=== PATIENT | male | born 1990 | race Caucasian/White ===

== ENCOUNTER → 2017-01-14 | Outpatient (CLI) | payer BC ==
--- NOTE | 2017-01-14 19:14 | DIAGNOSTIC IMAGING REPORT ---
R ANKLE MIN 3 VIEWS ROUTINE CLINICAL HISTORY: R FOOT PAIN pain. COMPARISON: None. DISCUSSION: The bones and joint spaces appear intact. There is no evidence of fracture, dislocation or bony disease. There is no evidence for soft tissue swelling. IMPRESSION: Negative study. The above report was generated using voice recognition software. It may contain grammatical, syntax or spelling errors. Electronically signed by: Armond Parmar M.D. 01/14/2017 7:13 PM Dictated Date/Time: 01/14/2017 7:12 PM
--- NOTE | 2017-01-14 19:17 | DIAGNOSTIC IMAGING REPORT ---
R FOOT MIN 3 VIEWS ROUTINE CLINICAL HISTORY: R FOOT PAIN COMPARISON: None. DISCUSSION: There are no areas of periostitis. There is a high partite medial sesamoid of the first metatarsal. There is an age-indeterminate 5 mm bony density at the level of the anteromedial calcaneus. IMPRESSION: Age-indeterminate 5 mm bony density at the level of the anterior medial calcaneus. Correlation with the patient's site of pain is recommended. Electronically signed by: Wally Merchant M.D. 01/14/2017 7:16 PM Dictated Date/Time: 01/14/2017 7:13 PM
== END | disposition home or self-care (01) ==
LOC: C.RAD 18:50
PROVIDERS: ATTEND Family Medicine
DX: M79.671 Pain in right foot (principal); M25.571 Pain in right ankle and joints of right foot; M25.871 Other specified joint disorders, right ankle and foot

== ENCOUNTER → 2017-01-30 | Outpatient (CLI) | payer BC ==
--- NOTE | 2017-01-30 10:08 | DIAGNOSTIC IMAGING REPORT ---
MRI THE RIGHT HINDFOOT/ANKLE NO CONTRAST CLINICAL HISTORY: Right ankle and foot pain. Inability to bear weight. COMPARISON STUDY: Conventional radiographic study dated 01/14/2017 FINDINGS: Imaging was performed in the axial, sagittal, and coronal planes. There are no areas of marrow edema to indicate occult fracture or bone bruise. There is no evidence for ligamentous disruption. There is a small amount of fluid within the peroneus longus tendon sheath. On image #22/34 the axial STIR images, there is a tiny partial longitudinal split tear of the peroneus longus. No additional tendon abnormalities are visualized. The plantar fascia appears normal. IMPRESSION: 1. No evidence of occult fracture or bone bruise 2. Tiny partial-thickness longitudinal split tear of the peroneus longus. Associated mild tenosynovitis. 3. No evidence of ligamentous disruption Electronically signed by: Wally Merchant M.D. 01/30/2017 10:07 AM Dictated Date/Time: 01/30/2017 9:44 AM
--- NOTE | 2017-01-30 10:40 | DIAGNOSTIC IMAGING REPORT ---
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 Skin marker placed at site of pain COMPARISON: Right ankle MRI of same day, right foot and ankle radiographs 01/14/2017 TECHNIQUE: Multiplanar multisequence MRI of the right forefoot were obtained without use of IV contrast FINDINGS: Mild tenosynovitis of the peroneus longus tendon is noted along its inframalleolar coarse, only partially imaged nicely seen on image 36 series 7 which is in close proximity to the skin markers which are place. The base of the fifth metatarsal. The remaining imaged tendons and ligaments appear intact. The dorsal and interosseous bands of the Lisfranc ligament are identified and are intact. There is no evidence of perineural fibrosis. Trace fluid is noted within the first webspace, likely physiologic. No definite intermetatarsal bursitis. No evidence of plantar plate tear. There is no focal bone marrow edema, fracture, periosteal edema or dislocation. No significant degenerative changes or coalition identified. Signal within the muscles and soft tissues are within normal limits. IMPRESSION: 1. Mild tenosynovitis of the peroneus longus tendon is noted along its inframalleolar coarse, only partially imaged . Please refer to the right ankle MRI of same day which better evaluates this finding. 2. No focal bone marrow edema, stress response or stress fracture. 3. No evidence of plantar plate tear, perineural fibrosis or intermetatarsal bursitis. The above report was generated using voice recognition software. It may contain grammatical, syntax or spelling errors. Electronically signed by: Jayce Perea M.D. 01/30/2017 10:39 AM Dictated Date/Time: 01/30/2017 10:31 AM
== END | disposition home or self-care (01) ==
LOC: C.MRI 07:50
PROVIDERS: ATTEND Family Medicine Sports Medicine
DX: S93.621A Sprain of tarsometatarsal ligament of right foot, initial encounter (principal); X58.XXXA Exposure to other specified factors, initial encounter